=== PATIENT | male | born 1995 | race Two or more races ===

== ENCOUNTER 2021-08-21 07:02 | Emergency (ER) | payer SELFPAY ==
[~2021-08-21] VITALS: Ht 175.3 cm; Wt 86.5 kg
[2021-08-21 07:03] VITALS: BP 133/90
== END 2021-08-21 07:20 | disposition left against medical advice (07) ==
LOC: M ED 07:02
DX: Z53.21 Procedure and treatment not carried out due to patient leaving prior to being seen by health care provider (principal)

== ENCOUNTER → 2023-02-02 | Outpatient (REF) | payer SELFPAY ==
[2023-02-02 12:51] LABS: SEMEN APPEARANCE OPAQUE (OPAQUE); SEMEN VISCOSITY LIQUID (LIQUID); SEMEN VOLUME 3.2 ml (2.0-5.0)
[2023-02-02 12:52] LABS: WBC CONCENTRATION <=1 M/ml (<=1 M/ml)
== END ==
LOC: M LAB REF 11:50
PROVIDERS: ATTEND Obstetrics & Gynecology
DX: N46.8 Other male infertility (principal)

== ENCOUNTER → 2023-02-17 | Outpatient (REF) | payer SELFPAY, OTHER ==
[2023-02-17 10:39] LABS: SEMEN APPEARANCE OPAQUE (OPAQUE)
[2023-02-17 10:40] LABS: SEMEN VISCOSITY VISCOUS (LIQUID); SEMEN VOLUME 2.5 ml (2.0-5.0); SEMEN pH 8.5 (7.0-8.0); SPERM CONCENTRATION 29.3 M/ml (>=15.0); WBC CONCENTRATION >1 M/ml (<=1 M/ml)
== END ==
LOC: M LAB REF 10:29
PROVIDERS: ATTEND Obstetrics & Gynecology
DX: N46.8 Other male infertility (principal)

== ENCOUNTER 2023-11-10 09:58 | Emergency (ER) | payer OTHER ==
[~2023-11-10] VITALS: Ht 175.3 cm; Wt 92.1 kg
[2023-11-10] MEDS ORDERED: methocarbamoL 500 MG TAB PO ONE (11:40)
[2023-11-10] MEDS ORDERED: IBUPROFEN 600MG TAB PO ONE (11:40)
[2023-11-10] MEDS ORDERED: METH-1164 PO (12:32)
[2023-11-10] MEDS ORDERED: IBUP-1022 PO (12:32)
[2023-11-10 12:36] VITALS: BP 129/80; TEMP 96.9; O2SAT 98
== END 2023-11-10 12:39 | disposition home or self-care (01) ==
LOC: M ED 09:58
DX: M54.50 Low back pain, unspecified (principal); Z79.1 Long term (current) use of non-steroidal anti-inflammatories (NSAID); Z79.891 Long term (current) use of opiate analgesic

== ENCOUNTER 2024-05-21 22:13 | Emergency (ER) | payer OTHER ==
[~2024-05-21] VITALS: Ht 175.3 cm; Wt 92.1 kg
[~2024-05-21 22:13] MED LIST: IBUP-1022 PO; METH-1164 PO
[2024-05-21] MEDS ORDERED: MELO15TA28 PO (22:20)
[2024-05-21] MEDS ORDERED: ACET-683 PO (22:20)
[2024-05-21] MEDS: IBUPROFEN 800 MG TAB PO ONE (22:46)
[2024-05-21] MEDS: ACETAMINOPHEN 500 MG TAB PO ONE (23:47)
[2024-05-22 00:16] LABS: BASO % 0.4 % (0.0-1.0); EOS % 0.2 % (0.0-3.0); HEMATOCRIT 44.4 % (42.0-52.0); HEMOGLOBIN 15.9 g/dl (13.5-17.5); LYMPH # 1.3 10^3/uL (1.5-5.0); LYMPH % 15.7 % (24.0-44.0); MEAN CORPUSCULAR HEMOGLOBIN 33.5 pg (27.0-33.0); MEAN CORPUSCULAR HGB CONC 35.8 g/dl (32.0-36.5); MEAN CORPUSCULAR VOLUME 93.5 fl (80.0-96.0); MONO # 1.1 10^3/uL (0.0-0.8); MONO % 13.5 % (2.0-8.0); NEUTROPHILS # 5.6 10^3/uL (1.5-8.5); NEUTROPHILS % 68.7 % (36.0-66.0); PLATELET COUNT, AUTOMATED 195 10^3/uL (150-450); RED BLOOD COUNT 4.75 10^6/uL (4.30-6.10); WHITE BLOOD COUNT 8.2 10^3/uL (4.0-10.0)
[2024-05-22 00:18] LABS: MONO SCRN NEGATIVE (NEGATIVE)
[2024-05-22 00:21] LABS: ERYTHROCYTE SEDIMENTATION RATE 23 mm/hr (0-15)
[2024-05-22] MEDS ORDERED: ISOVUE-370 76% 100ML VIAL As Ordered ONE (00:52)
[2024-05-22 01:05] VITALS: BP 131/74; TEMP 100.7; O2SAT 97
== END 2024-05-22 01:30 | disposition home or self-care (01) ==
LOC: M ED 22:13
DX: J02.9 Acute pharyngitis, unspecified (principal); E87.6 Hypokalemia; F17.200 Nicotine dependence, unspecified, uncomplicated; F10.10 Alcohol abuse, uncomplicated; Z79.899 Other long term (current) drug therapy
CPT/HCPCS: 36415; 70491; 80047; 83605; 85025; 85652; 86140; 86308; 87040; 87486; 87581; 87633; 87798; 87880; 99284; Q9967

== ENCOUNTER 2024-05-30 06:02 | Observation (INO) | payer OTHER ==
[~2024-05-30] VITALS: Ht 175.3 cm; Wt 90.6 kg
[~2024-05-30 06:02] MED LIST changes: +ACET-683 PO; +MELO15TA28 PO
[2024-05-30 06:40] LABS: BASO # 0.1 10^3/uL (0.0-0.2); BASO % 0.2 % (0.0-1.0); HEMATOCRIT 42.6 % (42.0-52.0); HEMOGLOBIN 15.3 g/dl (13.5-17.5); LYMPH # 0.9 10^3/uL (1.5-5.0); LYMPH % 3.5 % (24.0-44.0); MEAN CORPUSCULAR HEMOGLOBIN 33.1 pg (27.0-33.0); MEAN CORPUSCULAR HGB CONC 35.9 g/dl (32.0-36.5); MEAN CORPUSCULAR VOLUME 92.2 fl (80.0-96.0); MONO # 0.9 10^3/uL (0.0-0.8); MONO % 3.5 % (2.0-8.0); NEUTROPHILS # 23.3 10^3/uL (1.5-8.5); NEUTROPHILS % 91.7 % (36.0-66.0); PLATELET COUNT, AUTOMATED 252 10^3/uL (150-450); RED BLOOD COUNT 4.62 10^6/uL (4.30-6.10); WHITE BLOOD COUNT 25.4 10^3/uL (4.0-10.0)
[2024-05-30] MEDS: NS 500 ML IV ONE (06:43)
[2024-05-30 07:04] LABS: LIPASE 29 U/L (12-53)
[2024-05-30 07:06] LABS: ALBUMIN 4.2 G/DL (3.2-5.2); ALKALINE PHOSPHATASE 49 U/L (46-116); ALT/SGPT 104 U/L (7.0-40); AMYLASE 55 U/L (30-118); AST/SGOT 38 U/L (<34); BILIRUBIN,DIRECT 0.3 MG/DL (<0.4); BILIRUBIN,TOTAL 1.3 MG/DL (0.3-1.2); BLOOD UREA NITROGEN 9 MG/DL (9-23); CALCIUM LEVEL 9.4 MG/DL (8.5-10.1); CARBON DIOXIDE LEVEL 26 MMOL/L (20-31); CHLORIDE LEVEL 106 MMOL/L (98-107); CREATININE FOR GFR 0.99 MG/DL (0.70-1.30); GLOMERULAR FILTRATION RATE > 60.0 (>60); GLUCOSE, FASTING 109 MG/DL (60-100); POTASSIUM SERUM 4.1 MMOL/L (3.5-5.1); SODIUM LEVEL 139 MMOL/L (136-145); TOTAL PROTEIN 7.3 G/DL (5.7-8.2)
[2024-05-30 07:52] LABS: RSV AMPLIFICATION NEGATIVE (NEGATIVE)
[2024-05-30] MEDS ORDERED: ISOVUE-370 76% 100ML VIAL As Ordered ONE (08:38)
[2024-05-30 08:56] LABS: MONO SCRN NEGATIVE (NEGATIVE)
[2024-05-30 09:08] LABS: HEPATITIS B SURFACE ANTIGEN NEGATIVE (NEGATIVE)
[2024-05-30 09:22] LABS: HIV 1&2 SCREEN NEGATIVE (NEGATIVE)
[2024-05-30 09:30] LABS: HEPATITIS B CORE ANTIBODY IGM NEGATIVE (NEGATIVE); HEPATITIS C VIRUS ABY INDEX < 0.02 INDEX (<0.8)
[2024-05-30] MEDS: IBUPROFEN 800 MG TAB PO ONE (09:32)
[2024-05-30] MEDS: ACETAMINOPHEN TAB 650MG DOSE (2X325MG) PO ONE (09:32)
[2024-05-30] MEDS: PIPERACILLIN/TAZOBACTAM SOD 4.5 GM in D5W MINI-BAG PLUS 50 ML IV ONE (09:36)
[2024-05-30] MEDS: NS 1,000 ML IV ONE (11:08)
[2024-05-30] MEDS ORDERED: GABA600T4 PO (12:02)
[2024-05-30] MEDS ORDERED: ACET1TAB55 PO (12:02)
[2024-05-30] MEDS ORDERED: RIZA10TA58 PO (12:02)
[2024-05-30] MEDS ORDERED: HOME MED LIST COMPLETE! XX SCH (12:10)
[2024-05-30] MEDS ORDERED: ACETAMINOPHEN TAB 650MG DOSE (2X325MG) PO PRN (13:05)
[2024-05-30] MEDS ORDERED: RIZATRIPTAN MLT 10 MG TAB PO PRN (13:05)
[2024-05-30 13:37] LABS: PROCALCITONIN 0.23 ng/ml
[2024-05-30 14:00] VITALS: BP 107/64; TEMP 97.5; O2SAT 98
[2024-05-30] MEDS: DOXYCYCLINE HYCLATE 100MG TABLET PO SCH (14:53)
[2024-05-30] MEDS: cefTRIAXone SOD 1 GM in D5W MINI-BAG PLUS 50 ML IV SCH (16:22)
[2024-05-30 20:00] VITALS: BP 106/62; TEMP 97.8; O2SAT 97
[2024-05-30] MEDS: GABAPENTIN 300 MG CAP PO SCH (20:41)
[2024-05-31 03:20] VITALS: BP 124/70; TEMP 98.1; O2SAT 94
[2024-05-31 06:21] LABS: HEMATOCRIT 39.9 % (42.0-52.0); MEAN CORPUSCULAR HEMOGLOBIN 32.6 pg (27.0-33.0); MEAN CORPUSCULAR HGB CONC 35.1 g/dl (32.0-36.5); PLATELET COUNT, AUTOMATED 233 10^3/uL (150-450); RED BLOOD COUNT 4.29 10^6/uL (4.30-6.10); WHITE BLOOD COUNT 15.8 10^3/uL (4.0-10.0)
[2024-05-31 06:52] LABS: ALBUMIN 3.7 G/DL (3.2-5.2); ALKALINE PHOSPHATASE 50 U/L (46-116); ALT/SGPT 72 U/L (7.0-40); AST/SGOT 19 U/L (<34); BILIRUBIN,TOTAL 0.7 MG/DL (0.3-1.2); BLOOD UREA NITROGEN 10 MG/DL (9-23); CALCIUM LEVEL 9.5 MG/DL (8.5-10.1); CARBON DIOXIDE LEVEL 27 MMOL/L (20-31); CHLORIDE LEVEL 105 MMOL/L (98-107); CREATININE FOR GFR 0.95 MG/DL (0.70-1.30); GLOMERULAR FILTRATION RATE > 60.0 (>60); GLUCOSE, FASTING 88 MG/DL (60-100); MAGNESIUM LEVEL 1.9 MG/DL (1.8-2.4); POTASSIUM SERUM 4.2 MMOL/L (3.5-5.1); SODIUM LEVEL 142 MMOL/L (136-145); TOTAL PROTEIN 6.6 G/DL (5.7-8.2)
[2024-05-31] MEDS ORDERED: DOXY100T PO (11:00)
[2024-05-31] MEDS ORDERED: CEFD1CAP9 PO (11:00)
[2024-06-04 17:38] LABS: LYME TOTAL ANTIBODY CIA <= 0.90 Index (<=0.90)
== END 2024-05-31 12:27 | disposition home or self-care (01) ==
LOC: M ED 06:02 → UNDOADMOB 06:03 → M ED INP 06:03 → M MSPAV 13:49 → M ED INP 14:17 → M MSPAV 14:17
PROVIDERS: ADMIT Hospitalist; ATTEND Hospitalist
DX: R55 Syncope and collapse (principal); J18.9 Pneumonia, unspecified organism; B15.9 Hepatitis A without hepatic coma; Z79.899 Other long term (current) drug therapy; Z79.82 Long term (current) use of aspirin; G43.909 Migraine, unspecified, not intractable, without status migrainosus
CPT/HCPCS: 36415; 70450; 71260; 74177; 76705; 80048; 80053; 80074; 80076; 81001; 82150; 83605; 83690; 83735; 84145; 85025; 85027; 86140; 86308; 86618; 87040; 87389; 87486; 87581; 87631; 87633; 87798; 87880; 93005; 93041; 96365; 96367; 96375; 96376; 99285; J0696; J2543; Q9967

== ENCOUNTER 2024-07-23 23:32 | Emergency (ER) | payer OTHER ==
[~2024-07-23] VITALS: Ht 175.3 cm; Wt 91.2 kg
[~2024-07-23 23:32] MED LIST changes: +ACET1TAB55 PO; +CEFD1CAP9 PO; +DOXY100T PO; +GABA-1490 PO; +RIZA10TA58 PO
[2024-07-23 23:33] VITALS: BP 135/83; TEMP 99; O2SAT 97
== END 2024-07-24 03:30 | disposition left against medical advice (07) ==
LOC: M ED 23:32
DX: Z53.21 Procedure and treatment not carried out due to patient leaving prior to being seen by health care provider (principal)

== ENCOUNTER → 2024-07-27 | Outpatient (CLI) | payer OTHER ==
[2024-07-27 13:16] LABS: ALBUMIN 4.6 G/DL (3.2-5.2); ALKALINE PHOSPHATASE 55 U/L (46-116); ALT/SGPT 121 U/L (7.0-40); AST/SGOT 31 U/L (<34); BILIRUBIN,TOTAL 0.6 MG/DL (0.3-1.2); BLOOD UREA NITROGEN 11 MG/DL (9-23); CALCIUM LEVEL 9.7 MG/DL (8.5-10.1); CARBON DIOXIDE LEVEL 28 MMOL/L (20-31); CHLORIDE LEVEL 103 MMOL/L (98-107); GLOMERULAR FILTRATION RATE > 60.0 (>60); GLUCOSE, FASTING 94 MG/DL (60-100); IRON (FE) 58 UG/DL (65-175); PERCENT SATURATION 16.5 % (19.7-50.0); RHEUMATOID FACTOR QUANT 6.8 IU/ML (<14); SODIUM LEVEL 137 MMOL/L (136-145); TOTAL IRON BINDING CAPACITY 351 UG/DL (250-425); TOTAL PROTEIN 7.9 G/DL (5.7-8.2)
[2024-07-27 13:19] LABS: FERRITIN 347.9 NG/ML (10.5-307.3)
[2024-07-27 13:20] LABS: HEMATOCRIT 45.9 % (42.0-52.0); MEAN CORPUSCULAR HEMOGLOBIN 32.7 pg (27.0-33.0); MEAN CORPUSCULAR HGB CONC 34.9 g/dl (32.0-36.5); MEAN CORPUSCULAR VOLUME 93.7 fl (80.0-96.0); PLATELET COUNT, AUTOMATED 225 10^3/uL (150-450); WHITE BLOOD COUNT 9.5 10^3/uL (4.0-10.0)
[2024-07-27 13:32] LABS: ERYTHROCYTE SEDIMENTATION RATE 19 mm/hr (0-15)
[2024-07-28 12:36] LABS: ANA SCREEN, IFA NEGATIVE (NEGATIVE)
[2024-07-30 12:28] LABS: TRANSFERRIN 282 mg/dL (188-341)
== END ==
LOC: M PLALAB 10:03
PROVIDERS: ATTEND Internal Medicine Infectious Disease
DX: R74.01 Elevation of levels of liver transaminase levels (principal); R50.9 Fever, unspecified; R19.7 Diarrhea, unspecified

== ENCOUNTER → 2024-07-27 | Outpatient (REF) | payer OTHER | LOC: M SFHCPLAZ 09:51 | PROVIDERS: ATTEND Internal Medicine Infectious Disease | DX: R74.01 Elevation of levels of liver transaminase levels (principal); R50.9 Fever, unspecified; R19.7 Diarrhea, unspecified; Z53.9 Procedure and treatment not carried out, unspecified reason ==

== ENCOUNTER 2024-09-05 16:46 | Emergency (ER) | payer OTHER ==
[~2024-09-05] VITALS: Ht 175.3 cm; Wt 91.7 kg
[2024-09-05 18:46] LABS: BASO % 0.2 % (0.0-1.0); EOS % 0.1 % (0.0-3.0); HEMATOCRIT 46.2 % (42.0-52.0); HEMOGLOBIN 16.5 g/dl (13.5-17.5); LYMPH % 5.3 % (24.0-44.0); MEAN CORPUSCULAR HEMOGLOBIN 33.1 pg (27.0-33.0); MEAN CORPUSCULAR HGB CONC 35.7 g/dl (32.0-36.5); MEAN CORPUSCULAR VOLUME 92.6 fl (80.0-96.0); MONO # 0.7 10^3/uL (0.0-0.8); MONO % 3.6 % (2.0-8.0); NEUTROPHILS # 17.3 10^3/uL (1.5-8.5); NEUTROPHILS % 90.3 % (36.0-66.0); PLATELET COUNT, AUTOMATED 217 10^3/uL (150-450); RED BLOOD COUNT 4.99 10^6/uL (4.30-6.10); WHITE BLOOD COUNT 19.1 10^3/uL (4.0-10.0)
[2024-09-05 19:16] LABS: LIPASE 33 U/L (12-53)
[2024-09-05 19:18] LABS: ALBUMIN 4.3 G/DL (3.2-5.2); ALKALINE PHOSPHATASE 56 U/L (40-129); ALT/SGPT 222 U/L (7.0-40); AST/SGOT 72 U/L (<34); BILIRUBIN,DIRECT 0.3 MG/DL (<0.4); BILIRUBIN,TOTAL 0.7 MG/DL (0.3-1.2); CK-MB VALUE MASS < 1.0 NG/ML (<3.6); TOTAL PROTEIN 7.7 G/DL (5.7-8.2)
[2024-09-05 19:23] LABS: CPK CREATINE PHOSPHOKINASE 142 U/L (46-171)
[2024-09-05] MEDS ORDERED: NS 1,000 ML IV ONE (20:55)
[2024-09-05] MEDS ORDERED: ISOVUE-370 76% 100ML VIAL As Ordered ONE (21:23)
[2024-09-05 22:07] LABS: AMPHETAMINES LEVEL URINE NEGATIVE (NEGATIVE); BARBITURATES URINE NEGATIVE (NEGATIVE); BENZODIAZEPINES URINE NEGATIVE (NEGATIVE); COCAINE METABOLITE URINE NEGATIVE (NEGATIVE); METHADONE URINE NEGATIVE (NEGATIVE); OPIATES URINE NEGATIVE (NEGATIVE); PHENCYCLIDINE URINE NEGATIVE (NEGATIVE)
[2024-09-05 22:09] LABS: ETHYL ALCOHOL (ETHANOL) < 0.003 % (0.000-0.010)
[2024-09-05 22:09] LABS: CANNABINOIDS URINE POSITIVE (NEGATIVE)
[2024-09-05 22:10] LABS: CPK CREATINE PHOSPHOKINASE 126 U/L (46-171)
[2024-09-05 22:11] LABS: CK-MB VALUE MASS < 1.0 NG/ML (<3.6); MB/CK RELATIVE INDEX 0.79 (< OR =4)
[2024-09-05 22:12] VITALS: TEMP 99.4
[2024-09-05 22:15] LABS: FREE T4 1.18 NG/DL (0.89-1.76)
[2024-09-05 22:16] LABS: THYROID STIMULATING HORMONE 1.001 uIU/ML (0.55-4.78)
[2024-09-05 22:25] LABS: MONO SCRN NEGATIVE (NEGATIVE)
[2024-09-05] MEDS ORDERED: HOLTER MONITOR XX (23:39)
[2024-09-05 23:55] VITALS: BP 139/79; O2SAT 95
[2024-09-06 16:05] LABS: HEPATITIS B SURFACE ANTIGEN NEGATIVE (NEGATIVE)
[2024-09-06 16:26] LABS: HEPATITIS B CORE ANTIBODY IGM NEGATIVE (NEGATIVE); HEPATITIS C VIRUS ABY INDEX < 0.02 INDEX (<0.8)
== END 2024-09-05 23:58 | disposition home or self-care (01) ==
LOC: M ED 16:46
DX: R55 Syncope and collapse (principal); R74.01 Elevation of levels of liver transaminase levels; D72.829 Elevated white blood cell count, unspecified; F19.10 Other psychoactive substance abuse, uncomplicated; R00.0 Tachycardia, unspecified; F10.10 Alcohol abuse, uncomplicated; K76.0 Fatty (change of) liver, not elsewhere classified; Z79.2 Long term (current) use of antibiotics; Z79.1 Long term (current) use of non-steroidal anti-inflammatories (NSAID); Z79.899 Other long term (current) drug therapy
CPT/HCPCS: 70450; 71275; 74177; 80047; 80074; 80076; 80307; 81001; 82077; 82550; 82553; 83605; 83690; 84439; 84443; 84484; 85025; 86308; 87486; 87581; 87633; 87798; 93005; 96374; 99285; Q9967

== ENCOUNTER → 2024-09-06 | Outpatient (CLI) | payer OTHER ==
[~2024-09-06] MED LIST changes: +HOLTER MONITOR XX
== END ==
LOC: M EKG 15:55
PROVIDERS: ATTEND Registered Nurse
DX: R00.2 Palpitations (principal)